=== PATIENT | female | born 1945 | race Caucasian/White ===

== ENCOUNTER 2017-04-23 14:59 | Inpatient (IN) | payer OTHER ==
[~2017-04-23] VITALS: Ht 170.2 cm; Wt 55.3 kg
[~2017-04-23 14:59] MED LIST: CYANOCOBALAM1000 MCG PO; ERGOCALCIF50000 UNIT PO; FLONASE16 G1 BOTH NARES; INDERAL10 MG PO; KLONOPIN0.5 M1 PO; LEVOXYL50 MCG PO; MAGOX 400400 MG PO; METFORMIN HCL500 M1 PO; MIRALAX17 GM PO; NEURONTIN300 MG PO; PRILOSEC20 MG PO; PROPRANOLOL HCL10 MG PO; SENOKOT,SENN1 TABLET PO; SPIRIVA1 INHALATI IH; VITAMIN B12-FO1 EACH PO; XARELTO10 MG PO
[2017-04-23 16:25] LABS: HEMATOCRIT 43.8 % (36.0-46.0); MCH 33.7 PG (29.0-34.0); MCV 99.1 FL (83-99); MEAN PLAT.VOLUME 8.8 uM^3 (9.5-12.4); PLATELET COUNT 215 K/uL (156-360); RBC DIS.WIDTH-SD 47.2 % (39-53); RED BLOOD COUNT 4.42 M/uL (3.80-5.20); WHITE BLOOD COUNT 13.8 K/uL (4.1-10.2)
[2017-04-23 16:33] LABS: PROTHROMBIN TIME 10.9 SEC (10.2-12.9)
[2017-04-23 16:34] LABS: CHLORIDE 106 mEq/L (99-109); POTASSIUM 4.2 mEq/L (3.7-5.4); SODIUM 142 mEq/L (136-147)
[2017-04-23 16:36] LABS: GLUCOSE 169 mg/dL (70-99); PTT 25.3 SEC (25-37)
[2017-04-23 16:37] LABS: ANION GAP 15 MEQ/L (2-14)
[2017-04-23 16:38] LABS: TOTAL BILIRUBIN 1.5 mg/dL (0.0-1.0)
[2017-04-23 16:39] LABS: ALKALINE PHOSPHATASE 73 IU/L (3-129)
[2017-04-23 16:40] LABS: GFR ESTIMATE (CALCULATED) 47 mL/min/
[2017-04-23 16:41] LABS: UREA NITROGEN (BUN) 17 mg/dL (9-23)
[2017-04-23] MEDS ORDERED: BIOTIN10000 MC1 PO (18:55)
[2017-04-23 20:00] VITALS: BP 122/59; BP 128/56
[2017-04-23 20:47] LABS: CREATINE KINASE 120 IU/L (1-294); TOTAL CK 120 IU/L (1-294)
[2017-04-23 21:31] LABS: CK-MB 1.2 ng/mL (0.0-4.9)
[2017-04-23 22:07] LABS: POINT-OF-CARE METER ID UU14149397
[2017-04-23 23:49] VITALS: BP 95/54
[2017-04-24 03:45] VITALS: BP 110/52
[2017-04-24 06:56] LABS: HEMATOCRIT 32.8 % (36.0-46.0); MCH 34.7 PG (29.0-34.0); MCHC 34.5 G/DL (30.0-36.0); MCV 100.6 FL (83-99); MEAN PLAT.VOLUME 9.1 uM^3 (9.5-12.4); PLATELET COUNT 161 K/uL (156-360); RBC DIS.WIDTH-CV 13.1 % (11.8-14.6); RBC DIS.WIDTH-SD 48.4 % (39-53); WHITE BLOOD COUNT 8.5 K/uL (4.1-10.2)
[2017-04-24 07:00] LABS: ALKALINE PHOSPHATASE 47 IU/L (3-129); ANION GAP 6 MEQ/L (2-14); CHLORIDE 110 MEQ/L (99-109); GFR ESTIMATE (CALCULATED) > 59 mL/min/; POTASSIUM 4.2 MEQ/L (3.7-5.4); SAMPLE HEMOLYSIS CHECK 0; SAMPLE ICTERIC CHECK 0; SAMPLE LIPEMIA CHECK 0; SODIUM 143 MEQ/L (136-147); TOTAL BILIRUBIN 1.3 MG/DL (0.0-1.0); UREA NITROGEN (BUN) 16 mg/dL (9-23)
[2017-04-24 07:03] LABS: GLUCOSE 104 mg/dL (70-99)
[2017-04-24 07:09] LABS: RED BLOOD COUNT 3.26 M/uL (3.80-5.20)
[2017-04-24 14:03] LABS: HEMATOCRIT 32.5 % (36.0-46.0); MCH 34.2 PG (29.0-34.0); MCHC 34.2 G/DL (30.0-36.0); MEAN PLAT.VOLUME 8.8 uM^3 (9.5-12.4); PLATELET COUNT 161 K/uL (156-360); RBC DIS.WIDTH-CV 13.1 % (11.8-14.6); RED BLOOD COUNT 3.25 M/uL (3.80-5.20); WHITE BLOOD COUNT 7.8 K/uL (4.1-10.2)
[2017-04-24 20:05] VITALS: BP 108/60
[2017-04-24 23:13] VITALS: BP 103/55
[2017-04-25 04:40] VITALS: BP 110/56
[2017-04-25 06:57] LABS: EOSINOPHIL (%) 0 % (0-5); HEMATOCRIT 32.1 % (36.0-46.0); IMMATURE GRANULOCYTE COUNT 0.1 K/uL; INSTRUMENT ABS NEUTROPHIL CT 10.6 K/uL; LYMPHOCYTE COUNT 0.6 K/uL (1.0-2.8); MCH 34.1 PG (29.0-34.0); MCHC 34.9 G/DL (30.0-36.0); MCV 97.9 FL (83-99); MEAN PLAT.VOLUME 9.2 uM^3 (9.5-12.4); MONOCYTE (%) 3.5 % (3-12); MONOCYTE COUNT 0.4 K/uL (0-0.8); NEUTROPHIL COUNT 10.6 K/uL (1.8-6.4); PLATELET COUNT 153 K/uL (156-360); RBC DIS.WIDTH-CV 12.8 % (11.8-14.6); RED BLOOD COUNT 3.28 M/uL (3.80-5.20); WHITE BLOOD COUNT 11.8 K/uL (4.1-10.2)
[2017-04-25 07:55] VITALS: BP 133/59
[2017-04-25 12:25] VITALS: BP 121/68
[2017-04-25 16:26] LABS: POINT-OF-CARE METER ID UU14188577
[2017-04-25 16:37] VITALS: BP 119/58
[2017-04-25 20:07] VITALS: BP 147/60
[2017-04-25 21:33] LABS: POINT-OF-CARE METER ID UU14188577
[2017-04-25 23:33] VITALS: BP 125/60
[2017-04-26 04:06] VITALS: BP 114/57
[2017-04-26 06:48] LABS: ANION GAP 10 MEQ/L (2-14); CHLORIDE 108 MEQ/L (99-109); CREATINE KINASE 103 IU/L (1-294); GFR ESTIMATE (CALCULATED) 58 mL/min/; GLUCOSE 110 mg/dL (70-99); POTASSIUM 4.4 MEQ/L (3.7-5.4); SAMPLE HEMOLYSIS CHECK 0; SAMPLE ICTERIC CHECK 0; SAMPLE LIPEMIA CHECK 0; SODIUM 142 MEQ/L (136-147); UREA NITROGEN (BUN) 20 mg/dL (9-23)
[2017-04-26 07:47] LABS: HEMATOCRIT 36.1 % (36.0-46.0); MCH 33.9 PG (29.0-34.0); MCHC 34.6 G/DL (30.0-36.0); MCV 97.8 FL (83-99); MEAN PLAT.VOLUME 9.5 uM^3 (9.5-12.4); PLATELET COUNT 179 K/uL (156-360); RBC DIS.WIDTH-SD 46.3 % (39-53); RED BLOOD COUNT 3.69 M/uL (3.80-5.20); WHITE BLOOD COUNT 14.6 K/uL (4.1-10.2)
[2017-04-26 08:21] VITALS: BP 127/60
[2017-04-26 11:09] VITALS: BP 130/75
[2017-04-26 12:00] LABS: POINT-OF-CARE METER ID UU14117124
[2017-04-26 16:05] LABS: POINT-OF-CARE METER ID UU14117124
[2017-04-26 16:07] VITALS: BP 131/60
[2017-04-26 19:17] VITALS: BP 126/59
[2017-04-26 23:23] VITALS: BP 113/57
[2017-04-27 03:39] VITALS: BP 145/69
[2017-04-27 06:45] LABS: POINT-OF-CARE METER ID UU14208753
[2017-04-27 07:53] LABS: HEMATOCRIT 31.9 % (36.0-46.0); MCHC 35.7 G/DL (30.0-36.0); MCV 97.9 FL (83-99); MEAN PLAT.VOLUME 9.2 uM^3 (9.5-12.4); PLATELET COUNT 178 K/uL (156-360); RBC DIS.WIDTH-CV 12.9 % (11.8-14.6); RBC DIS.WIDTH-SD 46.5 % (39-53); RED BLOOD COUNT 3.26 M/uL (3.80-5.20); WHITE BLOOD COUNT 9.7 K/uL (4.1-10.2)
[2017-04-27 08:10] VITALS: BP 141/67
[2017-04-27 08:34] LABS: ANION GAP 7 MEQ/L (2-14); CHLORIDE 106 MEQ/L (99-109); SAMPLE HEMOLYSIS CHECK 0; SAMPLE ICTERIC CHECK 0; SAMPLE LIPEMIA CHECK 0; SODIUM 140 MEQ/L (136-147)
[2017-04-27 08:39] LABS: GFR ESTIMATE (CALCULATED) 58 mL/min/; GLUCOSE 109 mg/dL (70-99); UREA NITROGEN (BUN) 24 mg/dL (9-23)
[2017-04-27 11:26] LABS: POINT-OF-CARE METER ID UU14208753
[2017-04-27 11:50] VITALS: BP 106/51
[2017-04-27] MEDS ORDERED: BUPROPION HCL150 M2 PO (15:12)
[2017-04-27] MEDS ORDERED: FLORASTOR250 MG PO (15:12)
[2017-04-27] MEDS ORDERED: ENDOCET 5-3251 EACH PO (15:12)
[2017-04-27] MEDS ORDERED: DUONEB 2.5-0.5 M3 ML AEROSOL (15:12)
[2017-04-27] MEDS ORDERED: SPIRIVA1 INHALATI IH (15:12)
[2017-04-27] MEDS ORDERED: PREDNISONE20 MG PO (15:12)
[2017-04-27] MEDS ORDERED: ADVAIR HFA120 INHALA IH (15:12)
[2017-04-27] MEDS ORDERED: NICOTINE PATCH1 EAC2 TD (15:12)
[2017-04-27] MEDS ORDERED: CEFTIN500 MG PO (15:12)
[2017-04-27] MEDS ORDERED: FENTANYL1 EAC4 TD (15:12)
[2017-04-27 16:16] LABS: POINT-OF-CARE METER ID UU14208753
[2017-04-27 16:25] VITALS: BP 131/64
== END 2017-04-27 18:23 | DRG 535 ==
LOC: EME 14:59 → 3EAST 18:04 → EDOF 18:04 → ENRESERV 18:05 → 3EAST 19:45
PROVIDERS: Emergency Medicine; Internal Medicine; Pediatrics; Physician Assistant
DX: S32.512A Fracture of superior rim of left pubis, initial encounter for closed fracture (principal); S32.592A Other specified fracture of left pubis, initial encounter for closed fracture; S32.602A Unspecified fracture of left ischium, initial encounter for closed fracture; S32.591A Other specified fracture of right pubis, initial encounter for closed fracture; S32.10XA Unspecified fracture of sacrum, initial encounter for closed fracture; W18.30XA Fall on same level, unspecified, initial encounter; Y92.009 Unspecified place in unspecified non-institutional (private) residence as the place of occurrence of the external cause; J44.0 Chronic obstructive pulmonary disease with (acute) lower respiratory infection; J18.9 Pneumonia, unspecified organism; J44.1 Chronic obstructive pulmonary disease with (acute) exacerbation; J98.11 Atelectasis; E03.9 Hypothyroidism, unspecified; E11.9 Type 2 diabetes mellitus without complications; F32.9 Major depressive disorder, single episode, unspecified; F41.9 Anxiety disorder, unspecified; F17.210 Nicotine dependence, cigarettes, uncomplicated; Z86.718 Personal history of other venous thrombosis and embolism; Z85.118 Personal history of other malignant neoplasm of bronchus and lung; Z79.01 Long term (current) use of anticoagulants; Z88.0 Allergy status to penicillin; Z91.041 Radiographic dye allergy status
CPT/HCPCS: 71010; 71275; 72190; 72192; 73502; 80053; 80069; 82550; 82553; 82948; 85025; 85027; 85379; 85610; 85730; 86870; 86900; 86901; 86905; 86920; 93005; 94640; 94640 76; 94667; 94668; 94799; 97530 GP; 99202; 99281; 99285; J0696; J1200; J1644; J1815; J2930; J3010; J7030; J7050; J7512

== ENCOUNTER → 2017-05-07 | Outpatient (CLI) | payer OTHER ==
[~2017-05-07] MED LIST changes: +ADVAIR HFA120 INHALA IH; +BIOTIN10000 MC1 PO; +BUPROPION HCL150 M2 PO; +CEFTIN500 MG PO; +DUONEB 2.5-0.5 M3 ML AEROSOL; +ENDOCET 5-3251 EACH PO; +FENTANYL1 EAC4 TD; +FLORASTOR250 MG PO; +NICOTINE PATCH1 EAC2 TD; +PREDNISONE20 MG PO
== END | disposition home or self-care (01) ==
LOC: RAD 07:54
DX: I67.89 Other cerebrovascular disease (principal)
CPT/HCPCS: 70470

== ENCOUNTER 2017-07-14 10:27 | Inpatient (IN) | payer OTHER ==
[~2017-07-14] VITALS: Ht 157.5 cm; Wt 53.2 kg
[~2017-07-14 10:27] MED LIST changes: -LEVOXYL50 MCG PO; +LEVOXYL75 MCG PO
[2017-07-14 11:32] LABS: HEMATOCRIT 40.3 % (36.0-46.0); MCH 33.5 PG (29.0-34.0); MCHC 33.3 G/DL (30.0-36.0); MCV 100.8 FL (83-99); MEAN PLAT.VOLUME 8.9 uM^3 (9.5-12.4); PLATELET COUNT 301 K/uL (156-360); RBC DIS.WIDTH-CV 14.6 % (11.8-14.6); RBC DIS.WIDTH-SD 54.4 % (39-53)
[2017-07-14 11:42] LABS: CHLORIDE 106 mEq/L (99-109); POTASSIUM 3.9 mEq/L (3.7-5.4); SODIUM 142 mEq/L (136-147)
[2017-07-14 11:44] LABS: GLUCOSE 144 mg/dL (70-99)
[2017-07-14 11:45] LABS: ANION GAP 12 MEQ/L (2-14)
[2017-07-14 11:46] LABS: TOTAL BILIRUBIN 0.7 mg/dL (0.0-1.0)
[2017-07-14 11:47] LABS: ALKALINE PHOSPHATASE 133 IU/L (3-129)
[2017-07-14 11:48] LABS: GFR ESTIMATE (CALCULATED) 58 mL/min/
[2017-07-14 11:49] LABS: UREA NITROGEN (BUN) 13 mg/dL (9-23)
[2017-07-14] MEDS ORDERED: TYLENOL REGULA325 MG PO (15:53)
[2017-07-14] MEDS ORDERED: DULCOLAX10 MG PR (15:54)
[2017-07-14] MEDS ORDERED: PHILLIPS'400 MG/5 M PO (15:54)
[2017-07-14] MEDS ORDERED: FLEET ENEMA-AD118 ML PR (15:54)
[2017-07-14] MEDS ORDERED: REMERON15 M2 PO (15:55)
[2017-07-14] MEDS ORDERED: MIRALAX119 GM PO (15:55)
[2017-07-14] MEDS ORDERED: TRAMADOL HCL50 MG PO (15:55)
[2017-07-14 15:59] LABS: EOSINOPHIL (%) 0.9 % (0-5); EOSINOPHIL COUNT 0.1 K/uL (0-0.3); HEMATOCRIT 39.6 % (36.0-46.0); IMMATURE GRANULOCYTE (%) 0.4 % (0.0-0.7); INSTRUMENT ABS NEUTROPHIL CT 7.2 K/uL; MCH 32.7 PG (29.0-34.0); MCHC 32.3 G/DL (30.0-36.0); MCV 101.3 FL (83-99); MEAN PLAT.VOLUME 8.8 uM^3 (9.5-12.4); MONOCYTE (%) 6.7 % (3-12); MONOCYTE COUNT 0.6 K/uL (0-0.8); NEUTROPHIL (%) 80.5 % (45-76); NEUTROPHIL COUNT 7.2 K/uL (1.8-6.4); PLATELET COUNT 302 K/uL (156-360); RBC DIS.WIDTH-CV 14.7 % (11.8-14.6); RBC DIS.WIDTH-SD 54.9 % (39-53); RED BLOOD COUNT 3.91 M/uL (3.80-5.20)
[2017-07-14 16:08] LABS: CHLORIDE 106 mEq/L (99-109); POTASSIUM 4.1 mEq/L (3.7-5.4); SODIUM 142 mEq/L (136-147)
[2017-07-14 16:10] LABS: GLUCOSE 92 mg/dL (70-99)
[2017-07-14 16:11] LABS: ANION GAP 13 MEQ/L (2-14)
[2017-07-14 16:13] LABS: GFR ESTIMATE (CALCULATED) > 59 mL/min/
[2017-07-14 16:14] LABS: UREA NITROGEN (BUN) 12 mg/dL (9-23)
[2017-07-14 17:47] VITALS: BP 136/69
[2017-07-14 19:44] VITALS: BP 131/72
[2017-07-14 23:19] VITALS: BP 110/63
[2017-07-15 03:38] VITALS: BP 117/61
[2017-07-15 07:40] VITALS: BP 132/78
[2017-07-15 12:04] VITALS: BP 106/59
[2017-07-15 15:55] VITALS: BP 130/76
[2017-07-15 20:20] VITALS: BP 113/64
[2017-07-16 00:08] VITALS: BP 117/65
[2017-07-16 07:15] LABS: EOSINOPHIL (%) 0.1 % (0-5); HEMATOCRIT 39.7 % (36.0-46.0); IMMATURE GRANULOCYTE COUNT 0.1 K/uL; INSTRUMENT ABS NEUTROPHIL CT 12.9 K/uL; LYMPHOCYTE COUNT 0.7 K/uL (1.0-2.8); MCH 34.1 PG (29.0-34.0); MCHC 34.3 G/DL (30.0-36.0); MCV 99.5 FL (83-99); MONOCYTE (%) 5.8 % (3-12); MONOCYTE COUNT 0.8 K/uL (0-0.8); NEUTROPHIL (%) 88.1 % (45-76); NEUTROPHIL COUNT 12.9 K/uL (1.8-6.4); RBC DIS.WIDTH-SD 55.1 % (39-53); RED BLOOD COUNT 3.99 M/uL (3.80-5.20); WHITE BLOOD COUNT 14.6 K/uL (4.1-10.2)
[2017-07-16 07:20] VITALS: BP 107/59
[2017-07-16 07:21] LABS: ANION GAP 10 MEQ/L (2-14); CHLORIDE 103 MEQ/L (99-109); SAMPLE HEMOLYSIS CHECK 2; SAMPLE ICTERIC CHECK 0; SAMPLE LIPEMIA CHECK 0; SODIUM 139 MEQ/L (136-147)
[2017-07-16 07:26] LABS: GFR ESTIMATE (CALCULATED) 47 mL/min/; UREA NITROGEN (BUN) 15 mg/dL (9-23)
[2017-07-16 07:27] LABS: GLUCOSE 161 mg/dL (70-99); POTASSIUM 5.4 MEQ/L (3.7-5.4)
[2017-07-16 08:09] LABS: MEAN PLAT.VOLUME 9.8 uM^3 (9.5-12.4); PLAT.SUFFICIENCY ADEQUATE; PLATELET COUNT 292 K/uL (156-360)
[2017-07-16 16:00] VITALS: BP 113/59
[2017-07-16 19:20] LABS: ADD MIUA? YES; BILIRUBIN NEGATIVE; BLOOD NEGATIVE; COLOR YELLOW ((YELLOW)); GLUCOSE (STRIP) NEGATIVE; KETONES NEGATIVE; LEUKOCYTES LARGE; NITRITE NEGATIVE; PROTEIN (STRIP) NEGATIVE; SPECIFIC GRAVITY 1.018 (1.000-1.030)
[2017-07-16 19:42] LABS: BACTERIA 2+ /HPF; EPITHELIAL CELLS RARE /HPF; MUCUS RARE /LPF; RED BLOOD CELLS 0-5 /HPF (0-5); WHITE BLOOD CELLS TNTC /HPF (0-5)
[2017-07-17 03:47] VITALS: BP 106/56
[2017-07-17 07:10] VITALS: BP 96/54
[2017-07-17 07:17] LABS: ANION GAP 6 MEQ/L (2-14); CHLORIDE 108 MEQ/L (99-109); GFR ESTIMATE (CALCULATED) 58 mL/min/; GLUCOSE 98 mg/dL (70-99); POTASSIUM 4.1 MEQ/L (3.7-5.4); SAMPLE HEMOLYSIS CHECK 0; SAMPLE ICTERIC CHECK 0; SAMPLE LIPEMIA CHECK 0; SODIUM 143 MEQ/L (136-147); UREA NITROGEN (BUN) 10 mg/dL (9-23)
[2017-07-17 10:30] VITALS: BP 113/59
[2017-07-17 15:20] VITALS: BP 117/56
[2017-07-17 23:49] VITALS: BP 121/59
[2017-07-18 06:59] LABS: ANION GAP 8 MEQ/L (2-14); CHLORIDE 105 MEQ/L (99-109); GFR ESTIMATE (CALCULATED) 58 mL/min/; GLUCOSE 104 mg/dL (70-99); POTASSIUM 4.2 MEQ/L (3.7-5.4); SAMPLE HEMOLYSIS CHECK 0; SAMPLE ICTERIC CHECK 0; SAMPLE LIPEMIA CHECK 0; SODIUM 142 MEQ/L (136-147); UREA NITROGEN (BUN) 9 mg/dL (9-23)
[2017-07-18 08:00] VITALS: BP 124/66
[2017-07-18 16:10] VITALS: BP 132/69
[2017-07-18 19:10] VITALS: BP 122/64
[2017-07-18 23:20] VITALS: BP 126/62
[2017-07-19 07:00] VITALS: BP 130/63
[2017-07-19 17:32] VITALS: BP 112/55
[2017-07-19 23:40] VITALS: BP 119/57
[2017-07-20 07:09] LABS: EOSINOPHIL (%) 1.9 % (0-5); EOSINOPHIL COUNT 0.1 K/uL (0-0.3); HEMATOCRIT 34.3 % (36.0-46.0); IMMATURE GRANULOCYTE (%) 0.7 % (0.0-0.7); INSTRUMENT ABS NEUTROPHIL CT 4.1 K/uL; LYMPHOCYTE COUNT 0.8 K/uL (1.0-2.8); MCH 33.8 PG (29.0-34.0); MCHC 33.5 G/DL (30.0-36.0); MCV 100.9 FL (83-99); MEAN PLAT.VOLUME 8.8 uM^3 (9.5-12.4); MONOCYTE (%) 14.3 % (3-12); MONOCYTE COUNT 0.8 K/uL (0-0.8); NEUTROPHIL (%) 69.6 % (45-76); NEUTROPHIL COUNT 4.1 K/uL (1.8-6.4); PLATELET COUNT 290 K/uL (156-360); RBC DIS.WIDTH-CV 14.4 % (11.8-14.6); RBC DIS.WIDTH-SD 53.6 % (39-53); WHITE BLOOD COUNT 5.8 K/uL (4.1-10.2)
[2017-07-20 07:29] LABS: ANION GAP 10 MEQ/L (2-14); CHLORIDE 109 MEQ/L (99-109); GFR ESTIMATE (CALCULATED) > 59 mL/min/; GLUCOSE 102 mg/dL (70-99); POTASSIUM 3.8 MEQ/L (3.7-5.4); SAMPLE HEMOLYSIS CHECK 0; SAMPLE ICTERIC CHECK 0; SAMPLE LIPEMIA CHECK 0; SODIUM 146 MEQ/L (136-147); UREA NITROGEN (BUN) 11 mg/dL (9-23)
[2017-07-20 07:59] VITALS: BP 123/62
[2017-07-20 16:45] VITALS: BP 110/60
[2017-07-20 17:16] VITALS: BP 106/57
[2017-07-20 23:30] VITALS: BP 119/59
[2017-07-21 06:25] LABS: HEMATOCRIT 35.9 % (36.0-46.0); MCH 33.4 PG (29.0-34.0); MCHC 33.1 G/DL (30.0-36.0); MCV 100.8 FL (83-99); MEAN PLAT.VOLUME 8.8 uM^3 (9.5-12.4); PLATELET COUNT 283 K/uL (156-360); RBC DIS.WIDTH-CV 14.3 % (11.8-14.6); RBC DIS.WIDTH-SD 52.9 % (39-53); RED BLOOD COUNT 3.56 M/uL (3.80-5.20); WHITE BLOOD COUNT 6.3 K/uL (4.1-10.2)
[2017-07-21 06:55] LABS: ANION GAP 7 MEQ/L (2-14); CHLORIDE 105 MEQ/L (99-109); GFR ESTIMATE (CALCULATED) 58 mL/min/; GLUCOSE 103 mg/dL (70-99); POTASSIUM 3.8 MEQ/L (3.7-5.4); SAMPLE HEMOLYSIS CHECK 0; SAMPLE ICTERIC CHECK 0; SAMPLE LIPEMIA CHECK 0; SODIUM 141 MEQ/L (136-147); UREA NITROGEN (BUN) 10 mg/dL (9-23)
[2017-07-21 08:18] VITALS: BP 121/69
[2017-07-21 16:52] VITALS: BP 115/58
[2017-07-22 00:10] VITALS: BP 101/56
[2017-07-22 07:11] VITALS: BP 111/56
[2017-07-22] MEDS ORDERED: DUONEB 2.5-0.5 M3 ML AEROSOL ×2 (13:39→13:40)
[2017-07-22] MEDS ORDERED: LOVENOX40 MG/0.4 SC (13:41)
== END 2017-07-22 15:59 | disposition home or self-care (01) | DRG 178 ==
LOC: EME 10:27 → 2EAST 15:18 → EDOF 15:18 → ENRESERV 15:20 → 2EAST 17:24
PROVIDERS: Emergency Medicine; Family Medicine; Internal Medicine Nephrology
DX: J69.0 Pneumonitis due to inhalation of food and vomit (principal); N17.9 Acute kidney failure, unspecified; E86.0 Dehydration; E86.9 Volume depletion, unspecified; J44.9 Chronic obstructive pulmonary disease, unspecified; E03.9 Hypothyroidism, unspecified; E11.40 Type 2 diabetes mellitus with diabetic neuropathy, unspecified; F03.90 Unspecified dementia, unspecified severity, without behavioral disturbance, psychotic disturbance, mood disturbance, and anxiety; F17.200 Nicotine dependence, unspecified, uncomplicated; F41.9 Anxiety disorder, unspecified; I10 Essential (primary) hypertension; K59.00 Constipation, unspecified; R32 Unspecified urinary incontinence; Z85.118 Personal history of other malignant neoplasm of bronchus and lung; Z88.0 Allergy status to penicillin; Z91.041 Radiographic dye allergy status; Z23 Encounter for immunization
CPT/HCPCS: 71275; 74177; 80048; 80048 91; 80053; 80069; 81003; 82565; 83605; 84520; 85025; 85027; 87040; 90686; 92610 GN; 93005; 94640; 94640 76; 94667; 94668; 94760; 94799; 97530 GP; 99202; 99281; 99285; J1200; J1650; J1956; J7120

== ENCOUNTER 2017-08-07 16:51 | Emergency (ER) | payer OTHER ==
[~2017-08-07] VITALS: Ht 167.6 cm; Wt 76.5 kg
[~2017-08-07 16:51] MED LIST changes: +DULCOLAX10 MG PR; +FLEET ENEMA-AD118 ML PR; +LOVENOX40 MG/0.4 SC; +MIRALAX119 GM PO; +PHILLIPS'400 MG/5 M PO; +REMERON15 M2 PO; +TRAMADOL HCL50 MG PO; +TYLENOL REGULA325 MG PO
[2017-08-07 17:53] LABS: HEMATOCRIT 39.3 % (36.0-46.0); MCH 32.7 PG (29.0-34.0); MCHC 32.8 G/DL (30.0-36.0); MCV 99.7 FL (83-99); PLATELET COUNT 326 K/uL (156-360); RBC DIS.WIDTH-CV 13.6 % (11.8-14.6); RBC DIS.WIDTH-SD 49.5 % (39-53); RED BLOOD COUNT 3.94 M/uL (3.80-5.20); WHITE BLOOD COUNT 7.5 K/uL (4.1-10.2)
[2017-08-07 18:10] LABS: CHLORIDE 103 mEq/L (99-109); POTASSIUM 4.4 mEq/L (3.7-5.4); SODIUM 141 mEq/L (136-147)
[2017-08-07 18:12] LABS: GLUCOSE 133 mg/dL (70-99)
[2017-08-07 18:14] LABS: ANION GAP 10 MEQ/L (2-14); TOTAL BILIRUBIN 0.4 mg/dL (0.0-1.0)
[2017-08-07 18:16] LABS: ALKALINE PHOSPHATASE 106 IU/L (3-129); GFR ESTIMATE (CALCULATED) 43 mL/min/
[2017-08-07 18:17] LABS: UREA NITROGEN (BUN) 17 mg/dL (9-23)
[2017-08-07 18:19] LABS: LIPASE 21 U/L (1.0-51.0)
[2017-08-08 00:27] VITALS: BP 116/68
== END 2017-08-08 00:30 | disposition home or self-care (01) ==
LOC: EME 16:51
PROVIDERS: Emergency Medicine
DX: R10.9 Unspecified abdominal pain (principal)
CPT/HCPCS: 74176; 80053; 81003; 83690; 85027; 99281; 99285

== ENCOUNTER → 2017-11-18 | Outpatient (CLI) | payer OTHER | LOC: RAD 09:59 | DX: R13.13 Dysphagia, pharyngeal phase (principal); J44.9 Chronic obstructive pulmonary disease, unspecified; J18.9 Pneumonia, unspecified organism | CPT/HCPCS: 74230; 92611 GN; G8996 GN CJ; G8997 GN CJ; G8998 GN CJ ==